=== PATIENT | male | born 1955 | race Hispanic/Latino ===

== ENCOUNTER 2017-11-24 12:57 | Emergency (ER) | payer MEDICARE ==
[~2017-11-24 12:57] MED LIST: ASPI81TA40 PO; CYCL10TA7 PO; FOLI1TAB15 PO; GABA-531 PO; GLIP5TAB11 PO; HYDR25TA PO; LISI40TA4 PO; METF500T6 PO; PIOG45TA17 PO; TEST200V21 IM
[2017-11-24 13:29] LABS: APPEARANCE,URINE Clear (CLEAR); BILIRUBIN,URINE Negative (NEGATIVE); COLOR,URINE Dark Yellow (YELLOW); GLUCOSE, URINE (UA) TRACE mg/dL (NEGATIVE); KETONES,URINE Negative (NEGATIVE); LEUKOCYTE ESTERASE ,URINE Negative (NEGATIVE); NITRATE,URINE Negative (NEGATIVE); OCCULT BLOOD,URINE Negative (NEGATIVE); PH,URINE 5.5 (5.0-8.0); PROTEIN,URINE Negative (NEGATIVE)
[2017-11-24 13:32] LABS: BACTERIA,URINE Rare /HPF (None Seen); SQUAMOUS EPITHELIAL CELL,UR Rare /HPF (0-2); WBC,URINE 0-1 /HPF (0-1)
[2017-11-24] MEDS ORDERED: SODIUM CHLORIDE 0.9% 1000ML 1,000 ML IV ONE (13:41)
[2017-11-24 13:58] LABS: BASOPHILS % (AUTO) 0.7 % (0.0-5.0); EOSINOPHILS % (AUTO) 2.2 % (0.0-8.0); HEMATOCRIT 43.9 % (42-54); LYMPHOCYTES % (AUTO) 31.1 % (21.0-51.0); MEAN CORPUSCULAR HEMOGLOBIN 32.2 pg (27.0-33.0); MEAN CORPUSCULAR HGB CONC 34.2 g/dL (32.0-36.0); MEAN CORPUSCULAR VOLUME 93.9 fL (79-99); MONOCYTES % (AUTO) 7.8 % (3.0-13.0); NEUTROPHILS % (AUTO) 58.2 % (40.0-77.0); PLATELET COUNT (AUTO) 234 K/uL (130-400); RED BLOOD CELL COUNT(AUTO) 4.68 MIL/uL (4.50-6.20); RED CELL DISTRIBUTION WIDTH 13.9 % (11.0-15.5); WHITE BLOOD COUNT (AUTO) 6.3 K/uL (4.8-10.8)
[2017-11-24 14:16] LABS: POTASSIUM 4.7 mmol/L (3.5-5.1)
[2017-11-24 14:22] LABS: ALBUMIN 3.5 g/dL (3.5-5.0); BILIRUBIN,TOTAL 0.4 mg/dL (0.2-1.0)
[2017-11-24] MEDS ORDERED: KETOROLAC TROMETHAMINE 30MG/ML ONE (15:05)
== END 2017-11-24 15:48 | disposition home or self-care (01) ==
LOC: EDH 12:57
DX: R10.9 Unspecified abdominal pain (principal); E11.9 Type 2 diabetes mellitus without complications; E78.5 Hyperlipidemia, unspecified; I10 Essential (primary) hypertension; Z87.442 Personal history of urinary calculi
CPT/HCPCS: 36415; 74176; 80053; 81001; 85025; 96361; 96374; 99285; J1885; J7030

== ENCOUNTER 2017-12-17 23:09 | Emergency (ER) | payer MEDICARE ==
[~2017-12-17 23:09] MED LIST changes: -PIOG45TA17 PO; +PIOG45TA64 PO
[2017-12-17] MEDS ORDERED: ASPIRIN 325 MG TABLET ONE (23:44)
[2017-12-17 23:49] LABS: BASOPHILS % (AUTO) 0.6 % (0.0-5.0); EOSINOPHILS % (AUTO) 1.8 % (0.0-8.0); HEMATOCRIT 43.5 % (42-54); LYMPHOCYTES % (AUTO) 38.6 % (21.0-51.0); MEAN CORPUSCULAR HEMOGLOBIN 32.7 pg (27.0-33.0); MEAN CORPUSCULAR HGB CONC 34.5 g/dL (32.0-36.0); MEAN CORPUSCULAR VOLUME 94.8 fL (79-99); MONOCYTES % (AUTO) 7.3 % (3.0-13.0); NEUTROPHILS % (AUTO) 51.7 % (40.0-77.0); NUCLEATED RED BLOOD CELLS 0.1 % (0.0-0.19); PLATELET COUNT (AUTO) 269 K/uL (130-400); RED BLOOD CELL COUNT(AUTO) 4.59 MIL/uL (4.50-6.20); RED CELL DISTRIBUTION WIDTH 13.8 % (11.0-15.5); WHITE BLOOD COUNT (AUTO) 7.4 K/uL (4.8-10.8)
[2017-12-18 00:04] LABS: CREATININE 1.6 mg/dL (0.5-1.5); INR 0.94 (0.85-1.15); PARTIAL THROMBOPLASTIN TIME 26.2 SEC (26.3-35.5); POTASSIUM 4.1 mmol/L (3.5-5.1); PROTHROMBIN TIME 9.9 SEC (9.6-11.6)
[2017-12-18 00:17] LABS: ALBUMIN 3.8 g/dL (3.5-5.0); BILIRUBIN,TOTAL 0.2 mg/dL (0.2-1.0); CREATINE KINASE MB 1.3 ng/mL (0.5-3.6); TOTAL PROTEIN, SERUM 7.5 g/dL (6.0-8.3)
[2017-12-18 00:21] LABS: B-TYPE NATRIURETIC PEPTIDE < 5 pg/mL (0-100)
[2017-12-18] MEDS ORDERED: ONDANSETRON HCL MDV 20ML 2 MG/ML VIAL ONE (00:23)
[2017-12-18] MEDS ORDERED: SODIUM CHLORIDE 0.9% 1000ML 1,000 ML IV ONE (00:23)
== END 2017-12-18 02:42 | disposition home or self-care (01) ==
LOC: EDH 23:09
DX: R00.2 Palpitations (principal); R53.1 Weakness; E11.9 Type 2 diabetes mellitus without complications; E78.5 Hyperlipidemia, unspecified; I10 Essential (primary) hypertension; R79.1 Abnormal coagulation profile; Z87.442 Personal history of urinary calculi
CPT/HCPCS: 36415; 71045; 80053; 82550; 82553; 83874; 83880; 84484; 85025; 85610; 85730; 93005; 94761; 96374; 99285; J7030; 96361

== ENCOUNTER 2018-08-25 17:54 | Emergency (ER) | payer MEDICARE ==
[~2018-08-25 17:54] MED LIST changes: +METF-444 PO; -METF500T6 PO
[2018-08-25] MEDS ORDERED: ONDANSETRON HCL 4 MG/2 ML VIAL ONE (18:45)
[2018-08-25] MEDS ORDERED: FAMOTIDINE/PF 20 MG/2 ML VIAL IV ONE (18:46)
[2018-08-25 18:50] LABS: BASOPHILS % (AUTO) 0.4 % (0.0-5.0); EOSINOPHILS % (AUTO) 0.1 % (0.0-8.0); HEMATOCRIT 50.7 % (42-54); LYMPHOCYTES % (AUTO) 8.5 % (21.0-51.0); MEAN CORPUSCULAR VOLUME 94.1 fL (79-99); PLATELET COUNT (AUTO) 232 K/uL (130-400); RED BLOOD CELL COUNT(AUTO) 5.38 MIL/uL (4.50-6.20); RED CELL DISTRIBUTION WIDTH 14.9 % (11.0-15.5); WHITE BLOOD COUNT (AUTO) 10.2 K/uL (4.8-10.8)
[2018-08-25 19:00] LABS: POTASSIUM 5.1 mmol/L (3.5-5.1)
[2018-08-25 19:05] LABS: BILIRUBIN,TOTAL 0.6 mg/dL (0.2-1.0); TOTAL PROTEIN, SERUM 7.6 g/dL (6.0-8.3)
== END 2018-08-25 20:24 | disposition home or self-care (01) ==
LOC: EDH 17:54
DX: R11.2 Nausea with vomiting, unspecified (principal); R50.9 Fever, unspecified; E78.5 Hyperlipidemia, unspecified; E11.9 Type 2 diabetes mellitus without complications; I10 Essential (primary) hypertension; E07.9 Disorder of thyroid, unspecified; Z87.891 Personal history of nicotine dependence; Z87.442 Personal history of urinary calculi
CPT/HCPCS: 36415; 80053; 85025; 93005; 96374; 96375; 99284; J2405; J3490

== ENCOUNTER 2019-03-20 09:46 | Emergency (ER) | payer MEDICARE ==
[2019-03-20 10:16] LABS: EOSINOPHILS % (AUTO) 2.3 % (0.0-8.0); HEMATOCRIT 42.3 % (42-54); LYMPHOCYTES % (AUTO) 27.9 % (21.0-51.0); MEAN CORPUSCULAR HEMOGLOBIN 32.4 pg (27.0-33.0); MEAN CORPUSCULAR HGB CONC 33.8 g/dL (32.0-36.0); MEAN CORPUSCULAR VOLUME 95.9 fL (79-99); MONOCYTES % (AUTO) 8.3 % (3.0-13.0); NEUTROPHILS % (AUTO) 60.5 % (40.0-77.0); PLATELET COUNT (AUTO) 221 K/uL (130-400); RED BLOOD CELL COUNT(AUTO) 4.41 MIL/uL (4.50-6.20); RED CELL DISTRIBUTION WIDTH 14.3 % (11.0-15.5); WHITE BLOOD COUNT (AUTO) 5.6 K/uL (4.8-10.8)
[2019-03-20 10:27] LABS: CREATININE 1.1 mg/dL (0.5-1.5); PARTIAL THROMBOPLASTIN TIME 27.4 SEC (26.3-35.5); PROTHROMBIN TIME 10.5 SEC (9.6-11.6)
[2019-03-20 10:31] LABS: ALBUMIN 2.9 g/dL (3.5-5.0); BILIRUBIN,TOTAL 0.3 mg/dL (0.2-1.0); TOTAL PROTEIN, SERUM 5.2 g/dL (6.0-8.3)
[2019-03-20] MEDS ORDERED: NITROGLYCERIN 1GM/1 INCH PACKET TD ONE (10:35)
[2019-03-20 10:47] LABS: B-TYPE NATRIURETIC PEPTIDE < 5 pg/mL (0-100)
== END 2019-03-20 14:32 | disposition home or self-care (01) ==
LOC: EDH 09:46
DX: R07.89 Other chest pain (principal); R06.02 Shortness of breath; E11.9 Type 2 diabetes mellitus without complications; E78.5 Hyperlipidemia, unspecified; I10 Essential (primary) hypertension; E07.9 Disorder of thyroid, unspecified; Z87.442 Personal history of urinary calculi
CPT/HCPCS: 36415; 71045; 80053; 82550; 83880; 84484; 85025; 85610; 85730; 93005

== ENCOUNTER 2019-09-12 15:36 | Emergency (ER) | payer MEDICARE ==
[2019-09-12] MEDS ORDERED: ONDANSETRON HCL 4 MG/2 ML VIAL ONE (15:55)
[2019-09-12] MEDS ORDERED: FAMOTIDINE/PF 20 MG/2 ML VIAL IV ONE (15:56)
[2019-09-12 16:23] LABS: BASOPHILS % (AUTO) 0.6 % (0.0-5.0); EOSINOPHILS % (AUTO) 2.3 % (0.0-8.0); HEMATOCRIT 35.1 % (42-54); LYMPHOCYTES % (AUTO) 10.5 % (21.0-51.0); MEAN CORPUSCULAR HEMOGLOBIN 32.8 pg (27.0-33.0); MEAN CORPUSCULAR VOLUME 99.2 fL (79-99); MONOCYTES % (AUTO) 5.7 % (3.0-13.0); NEUTROPHILS % (AUTO) 80.7 % (40.0-77.0); PLATELET COUNT (AUTO) 217 K/uL (130-400); RED BLOOD CELL COUNT(AUTO) 3.54 MIL/uL (4.50-6.20); RED CELL DISTRIBUTION WIDTH 12.9 % (11.0-15.5); WHITE BLOOD COUNT (AUTO) 8.3 K/uL (4.8-10.8)
[2019-09-12 16:40] LABS: CREATININE 1.2 mg/dL (0.5-1.5); INR 0.96 (0.85-1.15); PARTIAL THROMBOPLASTIN TIME 24.4 SEC (26.3-35.5); POTASSIUM 4.7 mmol/L (3.5-5.1); PROTHROMBIN TIME 10.1 SEC (9.6-11.6)
[2019-09-12 16:44] LABS: ALBUMIN 3.8 g/dL (3.5-5.0); BILIRUBIN,TOTAL 0.4 mg/dL (0.2-1.0); TOTAL PROTEIN, SERUM 6.9 g/dL (6.0-8.3)
[2019-09-12 20:09] LABS: APPEARANCE,URINE Clear (CLEAR); BILIRUBIN,URINE Negative (NEGATIVE); COLOR,URINE Yellow (YELLOW); GLUCOSE, URINE (UA) Negative (NEGATIVE); KETONES,URINE Negative (NEGATIVE); LEUKOCYTE ESTERASE ,URINE Negative (NEGATIVE); NITRATE,URINE Negative (NEGATIVE); OCCULT BLOOD,URINE Negative (NEGATIVE); PROTEIN,URINE Negative (NEGATIVE); UROBILINOGEN,URINE 0.2 mg/dL (0.2-1.0)
== END 2019-09-12 20:23 | disposition home or self-care (01) ==
LOC: EDH 15:36
DX: R10.10 Upper abdominal pain, unspecified (principal); E11.65 Type 2 diabetes mellitus with hyperglycemia; I10 Essential (primary) hypertension; E78.5 Hyperlipidemia, unspecified
CPT/HCPCS: 36415; 71045; 74176; 80053; 81003; 82150; 82550; 83690; 84484; 85025; 85610; 85730; 86677; 93005; 96374; 96375; 99285; J2405; J3490

== ENCOUNTER 2019-11-11 07:20 | Emergency (ER) | payer MEDICARE ==
[2019-11-11] MEDS ORDERED: KETOROLAC TROMETHAMINE 30MG/ML ONE (07:56)
[2019-11-11] MEDS ORDERED: ONDANSETRON ODT 4 MG TAB ONE (07:57)
[2019-11-11 08:02] LABS: LYMPHOCYTES % (AUTO) 35.2 % (21.0-51.0); MEAN CORPUSCULAR HGB CONC 33.1 g/dL (32.0-36.0); MEAN CORPUSCULAR VOLUME 96.4 fL (79-99); MONOCYTES % (AUTO) 8.6 % (3.0-13.0); PLATELET COUNT (AUTO) 243 K/uL (130-400); RED BLOOD CELL COUNT(AUTO) 3.63 MIL/uL (4.50-6.20); RED CELL DISTRIBUTION WIDTH 12.3 % (11.0-15.5)
[2019-11-11 08:06] LABS: POTASSIUM 3.8 mmol/L (3.5-5.1)
[2019-11-11 08:09] LABS: INR 0.95 (0.85-1.15); PARTIAL THROMBOPLASTIN TIME 24.4 SEC (26.3-35.5)
[2019-11-11 08:12] LABS: ALBUMIN 3.6 g/dL (3.5-5.0); BILIRUBIN,TOTAL 0.2 mg/dL (0.2-1.0); TOTAL PROTEIN, SERUM 7.1 g/dL (6.0-8.3)
== END 2019-11-11 10:05 | disposition home or self-care (01) ==
LOC: EDH 07:20
DX: M17.12 Unilateral primary osteoarthritis, left knee (principal); M25.562 Pain in left knee; E66.9 Obesity, unspecified; I10 Essential (primary) hypertension; R60.9 Edema, unspecified; E11.9 Type 2 diabetes mellitus without complications; E78.5 Hyperlipidemia, unspecified; Z90.49 Acquired absence of other specified parts of digestive tract; Z87.891 Personal history of nicotine dependence
CPT/HCPCS: 36415; 73562; 80053; 85025; 85378; 85610; 85730; 96372; 99284; J1885

== ENCOUNTER 2019-12-31 20:26 | Inpatient (IN) | payer MEDICARE ==
[~2019-12-31] VITALS: Ht 177.8 cm; Wt 143.4 kg
[2019-12-31 20:53] LABS: BASOPHILS % (AUTO) 0.3 % (0.0-5.0); EOSINOPHILS % (AUTO) 0.3 % (0.0-8.0); HEMATOCRIT 34.2 % (42-54); LYMPHOCYTES % (AUTO) 13.7 % (21.0-51.0); MEAN CORPUSCULAR HEMOGLOBIN 31.6 pg (27.0-33.0); MEAN CORPUSCULAR HGB CONC 33.6 g/dL (32.0-36.0); NEUTROPHILS % (AUTO) 78.4 % (40.0-77.0); PLATELET COUNT (AUTO) 174 K/uL (130-400); RED BLOOD CELL COUNT(AUTO) 3.64 MIL/uL (4.50-6.20); WHITE BLOOD COUNT (AUTO) 3.9 K/uL (4.8-10.8)
[2019-12-31 21:07] LABS: INR 0.93 (0.85-1.15); PARTIAL THROMBOPLASTIN TIME 26.6 SEC (26.3-35.5); PROTHROMBIN TIME 10.1 SEC (9.6-11.6)
[2019-12-31 21:08] LABS: CREATININE 1.2 mg/dL (0.5-1.5); POTASSIUM 3.9 mmol/L (3.5-5.1)
[2019-12-31 21:12] LABS: ALBUMIN 3.1 g/dL (3.5-5.0); BILIRUBIN,TOTAL 0.5 mg/dL (0.2-1.0); TOTAL PROTEIN, SERUM 6.3 g/dL (6.0-8.3)
[2019-12-31] MEDS ORDERED: ONDANSETRON HCL 4 MG/2 ML VIAL ONE (21:27)
[2019-12-31] MEDS ORDERED: MORPHINE SULFATE 4 MG/1ML SYG ONE (21:27)
[2019-12-31 22:07] LABS: APPEARANCE,URINE Clear (CLEAR); BILIRUBIN,URINE Negative (NEGATIVE); COLOR,URINE Yellow (YELLOW); GLUCOSE, URINE (UA) 500 mg/dL (NEGATIVE); KETONES,URINE Trace mg/dL (NEGATIVE); LEUKOCYTE ESTERASE ,URINE Negative (NEGATIVE); NITRATE,URINE Negative (NEGATIVE); OCCULT BLOOD,URINE Negative (NEGATIVE); PROTEIN,URINE Negative (NEGATIVE)
[2019-12-31 22:33] LABS: BACTERIA,URINE None Seen /HPF (None Seen); RBC,URINE 0-1 /HPF (0-1); SQUAMOUS EPITHELIAL CELL,UR Few /HPF (0-2); WBC,URINE 0-1 /HPF (0-1)
[2019-12-31] MEDS: SODIUM CHLORIDE 0.9% 1000ML 1,000 ML IV SCH (23:29)
[2019-12-31] MEDS ORDERED: MORPHINE SULFATE 4 MG/1ML SYG IV PRN (23:30)
[2019-12-31] MEDS ORDERED: LACTULOSE 20 GM/30 ML UDCUP PO PRN (23:30)
[2019-12-31] MEDS ORDERED: ONDANSETRON HCL 4 MG/2 ML VIAL IV PRN (23:30)
[2019-12-31] MEDS ORDERED: ACETAMINOPHEN 325 MG TAB PO PRN (23:30)
[2019-12-31] MEDS ORDERED: HYDRALAZINE HCL 20 MG/ML VIAL IV PRN (23:30)
[2020-01-01] MEDS ORDERED: METRONIDAZOLE 500MG/100ML BAG 100 ML ONE (00:01)
[2020-01-01 00:20] VITALS: BP 127/56
--- NOTE | 2020-01-01 00:20 | NUR ---
Admission note: Admitted to floor via stretcher. Amb indep but needs guarding due to feeling of weakness. Fully awake and responsive. VS checked and recorded. Assessment done. ( See full assessment at CPOE flow chart) Plan of care initiated. Oriented to room and used of call light. Policies and procedures explained. Agreed and verbalized understanding. Attached to tele at bedside, NSR. Home meds listed. Monitored for any unusualities. Needs attended. No apparent distress noted. Pain manageable at this time as reported. For [employer] consult in AM. Maintained on NPO as ordered.
[2020-01-01] MEDS ORDERED: ACETAMINOPHEN 650 MG SUPPOSITORY RC ONE (00:58)
[2020-01-01] MEDS ORDERED: ACETAMINOPHEN 650 MG SUPPOSITORY RC PRN (01:00)
[2020-01-01] MEDS ORDERED: EZET10TA48 PO (01:48)
[2020-01-01] MEDS ORDERED: SPIR25TA PO (01:48)
[2020-01-01] MEDS ORDERED: TRAM50TA4 PO (01:48)
[2020-01-01] MEDS ORDERED: NITR0.4T50 SL (01:48)
[2020-01-01] MEDS ORDERED: METF-446 PO (01:48)
[2020-01-01] MEDS ORDERED: PANT40TA25 PO (01:48)
[2020-01-01] MEDS ORDERED: ICOS1CAP PO ×2 (01:48)
[2020-01-01] MEDS ORDERED: METO-408 PO (01:48)
[2020-01-01] MEDS ORDERED: ATOR40TA71 PO (01:48)
[2020-01-01 03:00] VITALS: BP 123/64
[2020-01-01] MEDS: INSULIN HUMULIN R 100 UNIT/ML 3ML SQ SCH ×4 (06:11→20:27)
[2020-01-01 06:23] LABS: BASOPHILS % (AUTO) 0.5 % (0.0-5.0); EOSINOPHILS % (AUTO) 0.2 % (0.0-8.0); HEMATOCRIT 32.4 % (42-54); LYMPHOCYTES % (AUTO) 22.2 % (21.0-51.0); MEAN CORPUSCULAR HEMOGLOBIN 31.3 pg (27.0-33.0); MEAN CORPUSCULAR HGB CONC 32.7 g/dL (32.0-36.0); MEAN CORPUSCULAR VOLUME 95.6 fL (79-99); MONOCYTES % (AUTO) 8.2 % (3.0-13.0); NEUTROPHILS % (AUTO) 68.7 % (40.0-77.0); PLATELET COUNT (AUTO) 161 K/uL (130-400); RED BLOOD CELL COUNT(AUTO) 3.39 MIL/uL (4.50-6.20); WHITE BLOOD COUNT (AUTO) 4.3 K/uL (4.8-10.8)
[2020-01-01 06:39] LABS: CREATININE 1.2 mg/dL (0.5-1.5); POTASSIUM 4.1 mmol/L (3.5-5.1)
[2020-01-01 07:30] VITALS: BP 110/62
[2020-01-01] MEDS ORDERED: METRONIDAZOLE 500MG/100ML BAG 100 ML IV SCH (08:00)
[2020-01-01] MEDS: FAMOTIDINE/PF 20 MG/2 ML VIAL IV SCH ×2 (09:17→20:27)
[2020-01-01] MEDS: SODIUM CHLORIDE 0.9% 1000ML 1,000 ML IV SCH ×2 (09:17→20:30)
[2020-01-01] MEDS ORDERED: PANTOPRAZOLE 40 MG/VIAL IVP SCH (10:45)
[2020-01-01 11:00] VITALS: BP 116/52
[2020-01-01] MEDS ORDERED: COMPOUND IV REFRIGERATED 1 EACH IVSOLN MISC PRN (11:45)
[2020-01-01] MEDS: PANTOPRAZOLE SODIUM 80 MG in SODIUM CHLORIDE 0.9% 100 ML IV SCH ×2 (12:30→21:05)
[2020-01-01] MEDS: ACETAMINOPHEN 325 MG TAB PO PRN (14:00)
--- NOTE | 2020-01-01 15:11 | NUR ---
CM NOTE/IA MEET WITH PATIENT IN ROOM, PER PATIENT, IS INDEPENDENT WITH ADLS, LIVES ALONE, HAS RO[employer]ING [employer] [place] AND MADDISON GUTIERREZ, PROVIDER 3HR PER DAY SATURDAY THRU SATURDAY AND FEELS SAFE TO RETURN HOME ONCE DISCHARGED FROM HOSPITAL. Addendum: 01/01/20 at 1513 by KAISER AMARAL RN CM Amended: Links added.
--- NOTE | 2020-01-01 15:27 | NUR ---
[id number] patient signed IM Letter, I faxed IM Letter to [phone] and placed in chart under consent tab.
[2020-01-01 16:00] VITALS: BP 109/58
[2020-01-01] MEDS ORDERED: NITROGLYCERIN 0.4 MG SL TAB SL SCH (18:15)
[2020-01-01 20:20] VITALS: BP 120/56
[2020-01-01] MEDS: ATORVASTATIN CALCIUM 40 MG TABLET PO SCH (21:04)
[2020-01-01] MEDS: TRAMADOL HCL 50 MG TABLET PO SCH (21:05)
[2020-01-02 00:20] VITALS: BP 114/62
[2020-01-02 04:24] VITALS: BP 129/57
[2020-01-02] MEDS: INSULIN HUMULIN R 100 UNIT/ML 3ML SQ SCH ×4 (05:37→20:55)
[2020-01-02 05:54] LABS: BASOPHILS % (AUTO) 0.7 % (0.0-5.0); EOSINOPHILS % (AUTO) 1.8 % (0.0-8.0); LYMPHOCYTES % (AUTO) 23.3 % (21.0-51.0); MEAN CORPUSCULAR HEMOGLOBIN 32.2 pg (27.0-33.0); MEAN CORPUSCULAR HGB CONC 33.7 g/dL (32.0-36.0); MEAN CORPUSCULAR VOLUME 95.5 fL (79-99); MONOCYTES % (AUTO) 15.1 % (3.0-13.0); NEUTROPHILS % (AUTO) 58.6 % (40.0-77.0); PLATELET COUNT (AUTO) 152 K/uL (130-400); RED BLOOD CELL COUNT(AUTO) 3.14 MIL/uL (4.50-6.20); RED CELL DISTRIBUTION WIDTH 12.9 % (11.0-15.5); WHITE BLOOD COUNT (AUTO) 4.4 K/uL (4.8-10.8)
[2020-01-02 07:30] VITALS: BP_SYST 101; BP_SYST 107; BP_SYST 122; BP_DIAS 48; BP_DIAS 52; BP_DIAS 57
[2020-01-02] MEDS: SODIUM CHLORIDE 0.9% 1000ML 1,000 ML IV SCH (08:08)
[2020-01-02] MEDS: EZETIMIBE 10 MG TAB PO SCH (08:09)
[2020-01-02] MEDS: FOLIC ACID 1 MG TABLET PO SCH (08:09)
[2020-01-02] MEDS: METOPROLOL SUCCINATE 50 MG TAB.SR.24H PO SCH (08:09)
[2020-01-02] MEDS: ACETAMINOPHEN 325 MG TAB PO PRN (08:09)
[2020-01-02] MEDS: METFORMIN HCL 500 MG TABLET PO SCH ×2 (08:09→17:01)
[2020-01-02] MEDS: FAMOTIDINE/PF 20 MG/2 ML VIAL IV SCH ×2 (08:09→19:41)
[2020-01-02] MEDS: Icosapent Ethyl (Vascepa) 2 GM PO SCH ×2 (08:10→21:00)
[2020-01-02] MEDS: PANTOPRAZOLE SODIUM 80 MG in SODIUM CHLORIDE 0.9% 100 ML IV SCH (10:49)
[2020-01-02 11:00] VITALS: BP_SYST 108; BP_SYST 111; BP_SYST 98; BP_DIAS 51; BP_DIAS 52; BP_DIAS 62
[2020-01-02 16:00] VITALS: BP 118/81
[2020-01-02] MEDS: PANTOPRAZOLE SODIUM 40 MG TABLET.DR PO SCH (17:01)
[2020-01-02] MEDS: TRAMADOL HCL 50 MG TABLET PO SCH (19:41)
[2020-01-02] MEDS: ATORVASTATIN CALCIUM 40 MG TABLET PO SCH (19:41)
[2020-01-02 20:18] VITALS: BP_SYST 120; BP_SYST 128; BP_SYST 138; BP_DIAS 111; BP_DIAS 52; BP_DIAS 66
[2020-01-03] VITALS: BP_SYST 117; BP_SYST 119; BP_SYST 120; BP_DIAS 62; BP_DIAS 63; BP_DIAS 65
[2020-01-03] MEDS: PANTOPRAZOLE SODIUM 40 MG TABLET.DR PO SCH (02:24)
[2020-01-03 04:00] VITALS: BP_SYST 100; BP_SYST 116; BP_SYST 126; BP_DIAS 45; BP_DIAS 55; BP_DIAS 65
[2020-01-03] MEDS: INSULIN HUMULIN R 100 UNIT/ML 3ML SQ SCH ×2 (06:12→12:49)
[2020-01-03] MEDS: METFORMIN HCL 500 MG TABLET PO SCH (06:36)
[2020-01-03 07:30] VITALS: BP_SYST 108; BP_SYST 121; BP_SYST 131; BP_DIAS 55; BP_DIAS 62; BP_DIAS 75
[2020-01-03] MEDS: Icosapent Ethyl (Vascepa) 2 GM PO SCH (09:00)
[2020-01-03] MEDS: EZETIMIBE 10 MG TAB PO SCH (09:38)
[2020-01-03] MEDS: FAMOTIDINE/PF 20 MG/2 ML VIAL IV SCH (09:40)
[2020-01-03] MEDS: METOPROLOL SUCCINATE 50 MG TAB.SR.24H PO SCH (09:40)
[2020-01-03] MEDS: FOLIC ACID 1 MG TABLET PO SCH (09:40)
[2020-01-03] MEDS ORDERED: PANT40TA PO (11:52)
== END 2020-01-03 13:50 | disposition home or self-care (01) | DRG 392 ==
LOC: EDH 20:26 → EDHIP 23:29 → OBSVTOIN 23:29 → 3DH 23:57
PROVIDERS: ADMIT Internal Medicine; ATTEND Internal Medicine
DX: K52.9 Noninfective gastroenteritis and colitis, unspecified (principal); Z68.42 Body mass index [BMI] 45.0-49.9, adult; I10 Essential (primary) hypertension; D64.9 Anemia, unspecified; E66.01 Morbid (severe) obesity due to excess calories; D72.819 Decreased white blood cell count, unspecified; E11.9 Type 2 diabetes mellitus without complications; E78.5 Hyperlipidemia, unspecified; Z60.2 Problems related to living alone; Z87.891 Personal history of nicotine dependence; Z83.3 Family history of diabetes mellitus; Z82.49 Family history of ischemic heart disease and other diseases of the circulatory system; Z82.0 Family history of epilepsy and other diseases of the nervous system; Z80.51 Family history of malignant neoplasm of kidney; Z81.1 Family history of alcohol abuse and dependence
CPT/HCPCS: 36415; 74176; 80048; 80053; 81001; 82270; 82948; 83630; 83690; 84484; 85025; 85610; 85730; 86701; 86850; 86900; 86901; 87040; 87324; 87390; 87507; 93005; C9113; G0378; J1815; J2270; J2405; J3490

== ENCOUNTER 2020-06-19 20:18 | Observation (INO) | payer MEDICARE ==
[~2020-06-19] VITALS: Ht 177.8 cm; Wt 139.7 kg
[~2020-06-19 20:18] MED LIST changes: +ATOR40TA71 PO; -CYCL10TA7 PO; +EZET10TA48 PO; -GABA-531 PO; -HYDR25TA PO; +ICOS1CAP PO; -LISI40TA4 PO; -METF-444 PO; +METF-446 PO; +METO-408 PO; +NITR0.4T50 SL; +PANT40TA PO; +TRAM50TA4 PO
[2020-06-19 20:39] LABS: BASOPHILS % (AUTO) 0.9 % (0.0-5.0); EOSINOPHILS % (AUTO) 0.6 % (0.0-8.0); HEMATOCRIT 39.7 % (42-54); LYMPHOCYTES % (AUTO) 27.3 % (21.0-51.0); MEAN CORPUSCULAR HEMOGLOBIN 30.7 pg (27.0-33.0); MEAN CORPUSCULAR HGB CONC 33.8 g/dL (32.0-36.0); MEAN CORPUSCULAR VOLUME 90.8 fL (79-99); MONOCYTES % (AUTO) 7.9 % (3.0-13.0); PLATELET COUNT (AUTO) 266 K/uL (130-400); RED BLOOD CELL COUNT(AUTO) 4.37 MIL/uL (4.50-6.20); RED CELL DISTRIBUTION WIDTH 13.2 % (11.0-15.5)
[2020-06-19 20:52] LABS: INR 0.92 (0.85-1.15); PARTIAL THROMBOPLASTIN TIME 23.6 SEC (26.3-35.5)
[2020-06-19 20:56] LABS: BILIRUBIN,TOTAL 0.4 mg/dL (0.2-1.0); CREATININE 1.4 mg/dL (0.5-1.5); POTASSIUM 3.6 mmol/L (3.5-5.1); TOTAL PROTEIN, SERUM 7.7 g/dL (6.0-8.3)
[2020-06-19] MEDS ORDERED: NITROGLYCERIN 1GM/1 INCH PACKET TD ONE (21:20)
[2020-06-19] MEDS ORDERED: DEXTROSE 50%-WATER 50 ML DISP.SYRIN IV PRN (22:00)
[2020-06-19] MEDS ORDERED: DIPHENHYDRAMINE HCL 25 MG CAPSULE PO PRN (22:00)
[2020-06-19] MEDS ORDERED: ONDANSETRON HCL 4 MG/2 ML VIAL IV PRN (22:00)
[2020-06-19] MEDS ORDERED: GLUCAGON 1MG KIT 1 MG ML IM PRN (22:00)
[2020-06-19] MEDS ORDERED: NITROGLYCERIN 0.4 MG SL TAB SL PRN (22:00)
[2020-06-19] MEDS ORDERED: ACETAMINOPHEN 325 MG TAB PO PRN ×2 (22:00)
[2020-06-19 22:10] LABS: APPEARANCE,URINE Clear (CLEAR); BILIRUBIN,URINE Negative (NEGATIVE); COLOR,URINE Yellow (YELLOW); GLUCOSE, URINE (UA) >=1000 mg/dL (NEGATIVE); KETONES,URINE Negative (NEGATIVE); LEUKOCYTE ESTERASE ,URINE Negative (NEGATIVE); NITRATE,URINE Negative (NEGATIVE); OCCULT BLOOD,URINE Negative (NEGATIVE); PROTEIN,URINE Negative (NEGATIVE)
[2020-06-19 22:17] LABS: AMPHET/METH SCREEN,URINE NEGATIVE (NEGATIVE); BARBITURATE SCREEN, URINE NEGATIVE (NEGATIVE); BENZODIAZEPINES SCREEN,URINE NEGATIVE (NEGATIVE); CANNABINOID SCREEN,URINE NEGATIVE (NEGATIVE); COCAINE SCREEN,URINE NEGATIVE (NEGATIVE); OPIATE SCREEN,URINE NEGATIVE (NEGATIVE); PHENCYCLIDINE SCREEN,URINE NEGATIVE (NEGATIVE)
[2020-06-19 22:21] LABS: HEMOGLOBIN A1C 9.7 % (4.0-6.0)
[2020-06-19 22:22] LABS: BACTERIA,URINE Rare /HPF (None Seen); RBC,URINE 0-1 /HPF (0-1); SQUAMOUS EPITHELIAL CELL,UR Rare /HPF (0-2); WBC,URINE 0-1 /HPF (0-1)
[2020-06-19 22:40] VITALS: BP 111/62
[2020-06-19 22:43] VITALS: BP 121/62
[2020-06-19 22:46] VITALS: BP 88/51
[2020-06-19] MEDS ORDERED: MAGNESIUM 2GM PREMIX 50ML 50 ML IV ONE (23:50)
[2020-06-20] VITALS (10 sets, daily range): BP systolic 81–136; BP diastolic 26–72
[2020-06-20] MEDS ORDERED: MAGNESIUM 2GM PREMIX 50ML 50 ML IV SCH
[2020-06-20 01:15] LABS: CREATINE KINASE, TOTAL 93 U/L (21-232); MYOGLOBIN 63 ng/mL (10-92); TROPONIN I < 0.04 ng/mL (0.00-0.06)
[2020-06-20 05:07] LABS: HEMATOCRIT 35.8 % (42-54); MEAN CORPUSCULAR HEMOGLOBIN 31.1 pg (27.0-33.0); MEAN CORPUSCULAR HGB CONC 33.8 g/dL (32.0-36.0); PLATELET COUNT (AUTO) 239 K/uL (130-400); RED BLOOD CELL COUNT(AUTO) 3.89 MIL/uL (4.50-6.20); RED CELL DISTRIBUTION WIDTH 13.5 % (11.0-15.5); WHITE BLOOD COUNT (AUTO) 6.2 K/uL (4.8-10.8)
[2020-06-20 05:32] LABS: ALANINE AMINOTRANSFERASE 26 U/L (12-78); ALBUMIN 3.3 g/dL (3.5-5.0); ASPARTATE AMINOTRANSFERASE 18 U/L (10-37); BILIRUBIN,TOTAL 0.4 mg/dL (0.2-1.0); CARBON DIOXIDE 31 mmol/L (21-32); CHLORIDE 101 mmol/L (101-111); CHOLESTEROL 97 mg/dL (<200); CREATINE KINASE, TOTAL 84 U/L (21-232); CREATININE 1.1 mg/dL (0.5-1.5); GLOMERULAR FILTR. RATE CALC 72 mL/min (>60); GLUCOSE,RANDOM 173 mg/dL (70-105); HDL CHOLESTEROL 49 mg/dL (29-71); LDL DIRECT 35 mg/dL (0-99); MYOGLOBIN 53 ng/mL (10-92); POTASSIUM 3.2 mmol/L (3.5-5.1); SODIUM SERUM 140 mmol/L (136-145); TOTAL PROTEIN, SERUM 6.6 g/dL (6.0-8.3); TRIGLYCERIDES 56 mg/dL (30-200); TROPONIN I < 0.04 ng/mL (0.00-0.06); UREA NITROGEN, BLOOD 16 mg/dL (7-18)
[2020-06-20] MEDS: INSULIN HUMULIN R 100 UNIT/ML 3ML SQ SCH ×4 (06:21→21:05)
[2020-06-20 06:23] LABS: LYMPHOCYTES % (MANUAL) 41 % (22-44); MAN.DIFF COMMENT-IMPRESSION MANUAL DIFFERENTIAL; MONOCYTES % (MANUAL) 6 % (2-9); PLATELET MORPHOLOGY COMMENT ADEQUATE; REACTIVE LYMPHOCYTES 2 % (0-0); SEGMENTED NEUTROPHILS % 51 % (40-70)
--- NOTE | 2020-06-20 08:00 | NUR ---
ROUNDING INTERVIEW PATIENT D/T AN ORDER THAT PATIENT WAS HAVING SUICIDAL IDEATIONS. THIS PATIENT AT ONE POINT 2005 WAS PHYSICALLY HURT AND UNABLE TO WORK, APPLIED FOR DISABILITY. IN THAT SAME YEAR HE WAS LIVING WITH SOMEONE AND SHE THREW HIM OUT OF THE HOME AND BECAME HOMELESS. THIS WAS THE TIME HE HAD SUICIDAL IDEATIONS BUT NEVER HAD A PLAN. PATIENT STATES HE HAS INTERMITTED SUICIDAL IDEATIONS AND HAS NO PLAN.
[2020-06-20] MEDS: ASPIRIN 325 MG TABLET PO SCH (08:16)
[2020-06-20] MEDS: METOPROLOL TARTRATE 25 MG TAB PO SCH ×2 (08:16→21:01)
[2020-06-20] MEDS: ENOXAPARIN SODIUM 30 MG/0.3 ML SQ SCH (08:17)
[2020-06-20] MEDS: FAMOTIDINE 20MG TAB 20 MG TAB PO SCH ×2 (08:17→21:01)
--- NOTE | 2020-06-20 10:00 | NUR ---
Random thoughts of suicide-referral from Nursing SW met with pt. who is awake, alert, oriented and pleasant. Pt. reports that he is X2, has two children ages 35 & 37 who reside in [facility]. Pt. is disabled since age 50 from a back injury; employment history includes; a [employer] and in [employer]. Pt. denies any history of suicide attempts, denies any current thoughts of harm to self and/or others. Pt. reports random thoughts of suicide at 50y when he became disabled and no longer to remain employed, however, denied having any suicidal plan. Pt. reports that he was referred to [facility] for depressed mood years ago, however, stopped seeking services because they did not help. Instead, pt. reports that he found ways to cope, by getting outdoors, sitting outdoors or seeking out his friends and that it has been effective. Pt. declined counseling resources stating that he did not care to return to any counseling centers but if needed he would consult his physician. No use of illicit substances, etoh or tobacco. Pt. has provider services 3h/6days week, [facility] week, has a walker, walking stick, shower chair and grab bars in the bathroom. Pt. is Medicare A&B enrolled, Medicaid, [employer] [place] $16, and [facility]. Pt. has a close friend Carmen Henry who is supportive and assists when needed [phone]. Pt. verbalized no SS needs or concerns. Addendum: 06/20/20 at 1445 by MARIXA AMARAL SS Amended: Links added.
--- NOTE | 2020-06-20 10:00 | NUR ---
Pt. is decision maker, resides alone, provider [id number] [place], [facility]RI[facility] 1week/nsg Pt. has a walker, shower chair and grab bars in bathroom; [facility], receives SSI and [employer] [place] Has Medicare A&B and Medicaid Feels safe returning home; will contact jaiden Henry [phone] for transp home Addendum: 06/20/20 at 1353 by MARIXA OWENS Amended: Links added.
--- NOTE | 2020-06-20 11:08 | NUR ---
ROUNDING DR. MARTINEZ CAME TO SEE PT. AT BEDSIDE
[2020-06-20] MEDS: VENLAFAXINE HCL XR 37.5 MG CAP PO SCH (12:52)
[2020-06-20] MEDS ORDERED: INSULIN GLARGINE 100 UNITS/ML 10 ML VIAL SQ SCH (21:00)
[2020-06-20] MEDS ORDERED: ATORVASTATIN CALCIUM 40 MG TABLET PO SCH (21:00)
[2020-06-21 03:58] VITALS: BP 104/58
[2020-06-21] MEDS: INSULIN HUMULIN R 100 UNIT/ML 3ML SQ SCH ×2 (05:32→12:50)
[2020-06-21] MEDS ORDERED: GLIPIZIDE 5 MG TABLET PO SCH (07:30)
[2020-06-21 07:46] VITALS: BP 114/64
[2020-06-21 07:50] VITALS: BP 110/67
[2020-06-21 07:51] VITALS: BP 95/57
[2020-06-21] MEDS: VENLAFAXINE HCL XR 37.5 MG CAP PO SCH (08:49)
[2020-06-21] MEDS: FAMOTIDINE 20MG TAB 20 MG TAB PO SCH (08:50)
[2020-06-21] MEDS: METFORMIN HCL 500 MG TABLET PO SCH ×2 (08:50→12:48)
[2020-06-21] MEDS: METOPROLOL TARTRATE 25 MG TAB PO SCH (08:50)
[2020-06-21] MEDS: ENOXAPARIN SODIUM 30 MG/0.3 ML SQ SCH (08:50)
[2020-06-21] MEDS: ASPIRIN 325 MG TABLET PO SCH (08:50)
--- NOTE | 2020-06-21 11:10 | NUR ---
EXPECTING DC HOME TODAY, CLEARED BY DR. GAMINO. Addendum: 06/21/20 at 1111 by GEGE SUTTON RN CM Amended: Links added.
[2020-06-21 11:30] VITALS: BP 116/63
[2020-06-21] MEDS ORDERED: NITROGLYCERIN 0.4 MG SL TAB SL SCH (15:15)
[2020-06-21 16:00] VITALS: BP 126/62
[2020-06-21] MEDS ORDERED: PANTOPRAZOLE SODIUM 40 MG TABLET.DR PO SCH (16:30)
--- NOTE | 2020-06-21 16:42 | NUR ---
discharge explained discharge instructions to patient...answered all questions and concerns..provided physicians prescription..pt encouraged to seek medical care if chest pain returns...pt will follow up with pcp and psychiatrist as directed...pt reported no suicidal ideation..
[2020-06-21] MEDS ORDERED: ICOSAPENT ETHYL PO SCH (21:00)
[2020-06-21] MEDS ORDERED: ATORVASTATIN CALCIUM 40 MG TABLET PO SCH (21:00)
[2020-06-21] MEDS ORDERED: NON-FORMULARY MEDICATION 1 EACH (Metformin HCl 1,000 MG) PO SCH (21:00)
[2020-06-21] MEDS ORDERED: [UNRECOGNIZED DRUG - OTHER] PO SCH (21:00)
[2020-06-22] MEDS ORDERED: GLIPIZIDE 5 MG TABLET PO SCH (09:00)
[2020-06-22] MEDS ORDERED: NON-FORMULARY MEDICATION 1 EACH (Metoprolol Succinate 25 MG) PO SCH (09:00)
[2020-06-22] MEDS ORDERED: ASPIRIN 81 MG EC TAB PO SCH (09:00)
[2020-06-22] MEDS ORDERED: FOLIC ACID 1 MG TABLET PO SCH (09:00)
[2020-06-22] MEDS ORDERED: PIOGLITAZONE HCL 45 MG TAB PO SCH (09:00)
[2020-06-22] MEDS ORDERED: METOPROLOL SUCCINATE 50 MG TAB.SR.24H PO SCH (09:00)
[2020-06-22] MEDS ORDERED: EZETIMIBE 10 MG TAB PO SCH (09:00)
[2020-07-05] MEDS ORDERED: TESTOSTERONE CYPIONATE 400 MG IM SCH (09:00)
== END 2020-06-21 16:40 | disposition home or self-care (01) ==
LOC: EDH 20:18 → EDHIP 22:02 → 3DH 22:32
PROVIDERS: ADMIT Internal Medicine; ATTEND Internal Medicine
DX: R07.89 Other chest pain (principal); F41.1 Generalized anxiety disorder; F32.9 Major depressive disorder, single episode, unspecified; E66.01 Morbid (severe) obesity due to excess calories; E83.42 Hypomagnesemia; R42 Dizziness and giddiness; I10 Essential (primary) hypertension; E11.9 Type 2 diabetes mellitus without complications; F60.7 Dependent personality disorder; E78.5 Hyperlipidemia, unspecified; N20.0 Calculus of kidney; Z86.73 Personal history of transient ischemic attack (TIA), and cerebral infarction without residual deficits; Z87.442 Personal history of urinary calculi; M19.90 Unspecified osteoarthritis, unspecified site; Z68.41 Body mass index [BMI] 40.0-44.9, adult
CPT/HCPCS: 36415 ×2; 71045; 80053 ×2; 80061; 80305; 81001; 82550 ×3; 82948 ×7; 83036; 83735 ×2; 83874 ×2; 84484 ×3; 85025 ×2; 85610; 85730; 93005 ×3; 96365; 96366; 96372 ×2; 99285; G0378 ×3; J1650 ×2; J1815 ×5; J3475 ×2; Q0161

== ENCOUNTER 2020-07-15 11:48 | Emergency (ER) | payer MEDICARE ==
[2020-07-15] MEDS ORDERED: LORAZEPAM 2 MG/ML 1 ML VIAL ONE (12:25)
[2020-07-15 12:42] LABS: INR 1.07 (0.85-1.15); PARTIAL THROMBOPLASTIN TIME 19.1 SEC (26.3-35.5); PROTHROMBIN TIME 11.5 SEC (9.6-11.6)
[2020-07-15 12:47] LABS: BASOPHILS % (AUTO) 0.9 % (0.0-5.0); EOSINOPHILS % (AUTO) 0.7 % (0.0-8.0); HEMATOCRIT 41.7 % (42-54); LYMPHOCYTES % (AUTO) 18.7 % (21.0-51.0); MEAN CORPUSCULAR HEMOGLOBIN 31.2 pg (27.0-33.0); MEAN CORPUSCULAR HGB CONC 33.6 g/dL (32.0-36.0); MEAN CORPUSCULAR VOLUME 92.9 fL (79-99); MONOCYTES % (AUTO) 7.5 % (3.0-13.0); NEUTROPHILS % (AUTO) 71.9 % (40.0-77.0); PLATELET COUNT (AUTO) 220 K/uL (130-400); RED BLOOD CELL COUNT(AUTO) 4.49 MIL/uL (4.50-6.20); RED CELL DISTRIBUTION WIDTH 13.7 % (11.0-15.5); WHITE BLOOD COUNT (AUTO) 6.9 K/uL (4.8-10.8)
[2020-07-15 14:03] LABS: ALBUMIN 3.7 g/dL (3.5-5.0); BILIRUBIN,TOTAL 0.5 mg/dL (0.2-1.0); CREATININE 1.3 mg/dL (0.5-1.5); TOTAL PROTEIN, SERUM 7.4 g/dL (6.0-8.3)
== END 2020-07-15 14:45 | disposition home or self-care (01) ==
LOC: EDH 11:48
DX: R07.89 Other chest pain (principal); F41.1 Generalized anxiety disorder; E11.9 Type 2 diabetes mellitus without complications; E78.5 Hyperlipidemia, unspecified; I10 Essential (primary) hypertension; Z90.49 Acquired absence of other specified parts of digestive tract
CPT/HCPCS: 36415; 71045; 80053; 82550; 84484; 85025; 85610; 85730; 93005; 96374; 99285; J2060

== ENCOUNTER 2022-11-15 23:32 | Emergency (ER) | payer OTHER, MEDICARE ==
[~2022-11-15] VITALS: Ht 177.8 cm; Wt 136.1 kg
[2022-11-16 02:18] VITALS: BP 128/61
== END 2022-11-16 03:36 | disposition home or self-care (01) ==
LOC: EDH 23:32
DX: S92.351A Displaced fracture of fifth metatarsal bone, right foot, initial encounter for closed fracture (principal); S62.101A Fracture of unspecified carpal bone, right wrist, initial encounter for closed fracture; E66.09 Other obesity due to excess calories; E11.9 Type 2 diabetes mellitus without complications; I10 Essential (primary) hypertension; M19.90 Unspecified osteoarthritis, unspecified site; Z68.41 Body mass index [BMI] 40.0-44.9, adult; Z79.899 Other long term (current) drug therapy; Z79.82 Long term (current) use of aspirin; Z79.84 Long term (current) use of oral hypoglycemic drugs; Z90.49 Acquired absence of other specified parts of digestive tract; Z98.890 Other specified postprocedural states; Z87.442 Personal history of urinary calculi; W18.39XA Other fall on same level, initial encounter; Y93.01 Activity, walking, marching and hiking; Y92.89 Other specified places as the place of occurrence of the external cause; Y99.8 Other external cause status
CPT/HCPCS: 73600; 73630

== ENCOUNTER 2023-09-04 02:25 | Emergency (ER) | payer OTHER, MEDICARE ==
[~2023-09-04] VITALS: Ht 177.8 cm; Wt 138.8 kg
[~2023-09-04 02:25] MED LIST changes: -GLIP5TAB11 PO; +GLIP5TAB15 PO
[2023-09-04 03:08] LABS: BASOPHILS # (AUTO) 0.04 K/uL (0.00-0.20); BASOPHILS % (AUTO) 0.5 % (0.0-5.0); EOSINOPHILS # (AUTO) 0.09 K/uL (0.00-0.70); EOSINOPHILS % (AUTO) 1.2 % (0.0-8.0); HEMATOCRIT 37.4 % (42-54); IMMATURE GRANULOCYTE ABSOLUTE 0.02 K/uL (0-1); LYMPHOCYTES # (AUTO) 1.7 K/uL (1.0-4.8); LYMPHOCYTES % (AUTO) 22.8 % (21.0-51.0); MEAN CORPUSCULAR HEMOGLOBIN 31.1 pg (27.0-33.0); MEAN CORPUSCULAR HGB CONC 34.2 g/dL (32.0-36.0); MONOCYTES # (AUTO) 0.5 K/uL (0.1-1.0); MONOCYTES % (AUTO) 6.4 % (3.0-13.0); NEUTROPHILS # (AUTO) 5.1 K/uL (1.8-7.7); NEUTROPHILS % (AUTO) 68.8 % (40.0-77.0); PLATELET COUNT (AUTO) 219 K/uL (130-400); RED BLOOD CELL COUNT(AUTO) 4.11 MIL/uL (4.50-6.20); RED CELL DISTRIBUTION WIDTH 13.2 % (11.0-15.5); WHITE BLOOD COUNT (AUTO) 7.4 K/uL (4.8-10.8)
[2023-09-04 03:20] LABS: POTASSIUM 3.2 mmol/L (3.5-5.1)
[2023-09-04 03:24] LABS: ALBUMIN 3.1 g/dL (3.5-5.0); BILIRUBIN,TOTAL 0.5 mg/dL (0.2-1.0); TOTAL PROTEIN, SERUM 6.7 g/dL (6.0-8.3)
[2023-09-04] MEDS ORDERED: IOHEXOL 350 MG/ML 100ML INFUS..BTL IV ONE (04:02)
[2023-09-04] MEDS ORDERED: IBUP-1493 PO (05:09)
[2023-09-04] MEDS ORDERED: ONDA-104 PO (05:09)
[2023-09-04] MEDS ORDERED: HALOPERIDOL INJ 5 MG/ML VIAL IV SCH (05:30)
[2023-09-04 06:23] VITALS: BP 132/78; PULSE 81; RESP 18; O2SAT 98
== END 2023-09-04 07:25 | disposition home or self-care (01) ==
LOC: EDH 02:25
DX: K42.9 Umbilical hernia without obstruction or gangrene (principal); I10 Essential (primary) hypertension; E11.9 Type 2 diabetes mellitus without complications; M19.90 Unspecified osteoarthritis, unspecified site; Z79.82 Long term (current) use of aspirin; Z79.84 Long term (current) use of oral hypoglycemic drugs; Z79.899 Other long term (current) drug therapy; Z98.890 Other specified postprocedural states; Z90.49 Acquired absence of other specified parts of digestive tract
CPT/HCPCS: 99285; 74177; 96374; 82550; 80053; 83690; 85025; 83605; 36415; J1630; Q9967

== ENCOUNTER 2023-12-06 22:18 | Emergency (ER) | payer OTHER, MEDICARE ==
[~2023-12-06] VITALS: Ht 177.8 cm; Wt 136.1 kg
[~2023-12-06 22:18] MED LIST changes: +IBUP-1493 PO; +ONDA-104 PO
[2023-12-06 22:19] VITALS: BP 132/77; PULSE 77; RESP 20
== END 2023-12-07 04:02 | disposition left against medical advice (07) ==
LOC: EDH 22:18
DX: H53.8 Other visual disturbances (principal); Z53.21 Procedure and treatment not carried out due to patient leaving prior to being seen by health care provider
CPT/HCPCS: 99281